=== PATIENT | female | born 2000 | race Caucasian/White ===

== ENCOUNTER → 2021-10-18 14:07 | Outpatient (BNVA) | payer MEDICAID, SELFPAY | PROVIDERS: Visit Provider Nurse Practitioner Family | DX: Z20.2 Contact with and (suspected) exposure to infections with a predominantly sexual mode of transmission (principal); Z72.51 High risk heterosexual behavior; Z31.89 Encounter for other procreative management | CPT/HCPCS: 87491; 87591; 87661 ==